=== PATIENT | male | born 1990 | race African-American/Black ===

== ENCOUNTER 2025-03-16 22:50 | Emergency (ER) | payer SELFPAY ==
[~2025-03-16 22:50] MED LIST: Iopamidol 370 76% 100 ML VIAL ONE
[2025-03-16 23:22] LABS: Glucose, Urine (Dipstick) Negative (Negative); Leukocyte Negative (Negative); Protein, Urine (Dipstick) Negative (Neg-Trace); Specific Gravity, Urine 1.025 (1.005-1.030)
[2025-03-16 23:26] LABS: CAUTI Indications for Culture Pelvic or flank pain; RBC/HPF None Seen HPF (0-3); Urine Culture Reflex No No; WBC/HPF None Seen HPF (0-3)
[2025-03-16 23:29] LABS: Hematocrit 42.1 % (42.0-52.0); Hemoglobin 13.6 g/dL (14.0-18.0); MDiff Complete? YES; Mean Corpuscular Hemoglobin 33.5 pg (27.0-31.0); Mean Corpuscular Volume 103.9 fl (78.0-98.0); Platelet Count 239 10x3/uL (130-400); Red Blood Cell (RBC) Count 4.05 mill/uL (4.70-6.10); White Blood Cell (WBC) Count 5.3 10x3/uL (4.8-10.8)
[2025-03-16 23:34] LABS: ALT (SGPT) 31 U/L (Less than 45); AST (SGOT) 54 U/L (11-34); Albumin 4.4 g/dL (3.1-4.5); Alkaline Phosphatase 68 U/L (40-110); Anion Gap 16 mmol/L (10-20); BUN (Urea Nitrogen) 19 mg/dL (8.9-20.6); Bilirubin, Total 0.4 mg/dL (0.3-1.2); Calc. Creatinine Clearance 0 mL/min (70-130); Calcium 8.3 mg/dL (7.8-10.44); Carbon Dioxide 21 mmol/L (22-29); Chloride 105 mmol/L (98-107); Globulin 2.6 g/dL (2.4-3.5); Glucose 90 mg/dL (70-105); Lipase 35 U/L (8-78); Potassium 3.5 mmol/L (3.5-5.1); Sodium 138 mmol/L (136-145)
== END 2025-03-17 01:56 | disposition short-term general hospital (02) ==
LOC: EDBD → MADERS 22:50
DX: K56.609 Unspecified intestinal obstruction, unspecified as to partial versus complete obstruction (principal); F17.210 Nicotine dependence, cigarettes, uncomplicated
CPT/HCPCS: 74018; 74177; 80053; 81001; 83605; 83690; 85025; 96360; J7030; Q9967